=== PATIENT | male | born 1950 | race Hispanic/Latino ===

== ENCOUNTER 2025-09-18 06:16 | Day surgery (SDC) | payer MEDICARE, MEDICAID ==
[2025-09-18] VITALS (12 sets, daily range): BP systolic 97–150; BP diastolic 55–78; PULSE 77–91; RESP 14–18; TEMP 97.1–97.6
[~2025-09-18] VITALS: Ht 167.6 cm; Wt 88.0 kg
[~2025-09-18 06:16] MED LIST: ASPI-1005 PO; ATOR10 PO; CILO100T3 PO; DILT30 PO; FENO160T16 PO; FURO20TA4 PO; GABA-534 PO; INS7030 SQ; LISI5TAB21 PO; METF-446 PO; METO100T14 PO; TRAM50TA4 PO
[2025-09-18] MEDS ORDERED: DILT30TA3 PO (06:49)
[2025-09-18] MEDS ORDERED: GABA300C PO (06:49)
[2025-09-18] MEDS ORDERED: SERT-438 PO (06:51)
[2025-09-18] MEDS ORDERED: LOSA50TA64 PO (06:51)
[2025-09-18] MEDS ORDERED: LEVO75CA6 PO (06:51)
[2025-09-18] MEDS ORDERED: HUMLIS7525 SQ (06:51)
[2025-09-18] MEDS ORDERED: DAPA10TA PO (06:51)
[2025-09-18] MEDS: 0.9%NACL 1000ML 1,000 ML IV ONE (06:53)
[2025-09-18] MEDS ORDERED: LIDOCAINE HCL 1% 20 ML VIAL ONE (07:53)
--- NOTE | 2025-09-18 08:40 | NUR ---
PT BS 75 ORANGE JUICE GIVEN AND FULLY AWAKE, NOTIFIED NEERU Tenorio CRNA. PER PROPERTY MANAGEMENT INTERN OK TO TRANSFER PATIENT TO DAY PATIENT. REPORTED TO NAYELI TROY OF BLOOD SUGAR AND TRANSFER ORDER. Addendum: 09/18/25 at 0853 by ARANZA VALERIO RN RN Amended: Links added.
== END 2025-09-18 09:22 | disposition home or self-care (01) ==
LOC: DAH 06:16 → ENDO 06:16
PROVIDERS: ATTEND Internal Medicine Gastroenterology
DX: Z12.11 Encounter for screening for malignant neoplasm of colon (principal); D12.4 Benign neoplasm of descending colon; K57.30 Diverticulosis of large intestine without perforation or abscess without bleeding; I10 Essential (primary) hypertension; E11.9 Type 2 diabetes mellitus without complications; F41.9 Anxiety disorder, unspecified; F32.A Depression, unspecified; E78.00 Pure hypercholesterolemia, unspecified; Z96.642 Presence of left artificial hip joint; Z95.0 Presence of cardiac pacemaker; Z79.4 Long term (current) use of insulin; Z79.899 Other long term (current) drug therapy
CPT/HCPCS: 82948 ×3; 45385; J7030 ×2; J2704; A4620; A7002; J3490